=== PATIENT | female | born 1985 | race Caucasian/White ===

== ENCOUNTER 2020-05-05 14:53 | Outpatient (CLI) | payer MEDICAID ==
[2020-05-05 15:20] LABS: BASOPHILS # (AUTO) 0.1 10^3/uL (0.0-0.1); BASOPHILS % (AUTO) 0.5 %; EOSINOPHILS # (AUTO) 0.1 10^3/uL (0.0-0.7); EOSINOPHILS % (AUTO) 0.8 %; HGB - HEMOGLOBIN 12.8 g/dL (12.0-16.0); LYMPHOCYTES # (AUTO) 2.2 10^3/uL (1.5-3.5); LYMPHOCYTES % (AUTO) 24.1 %; MEAN CORPUSCULAR HEMOGLOBIN 32.7 pg (27.0-31.0); MEAN CORPUSCULAR HGB CONC 33.1 g/dL (32.0-36.0); MEAN CORPUSCULAR VOLUME 98.7 fL (81.0-99.0); MEAN PLATELET VOLUME 9.4 fL (7.9-10.8); MONOCYTES # (AUTO) 0.6 10^3/uL (0.0-1.0); MONOCYTES % (AUTO) 6.7 %; NEUTROPHILS # (AUTO) 6.3 10^3/uL (1.5-6.6); NEUTROPHILS % (AUTO) 67.7 %; PLT - PLATELET COUNT 258 10^3/uL (130-450); RED BLOOD COUNT 3.92 10^6/uL (4.20-5.40); RED CELL DISTRIBUTION WIDTH 13.1 % (12.0-15.0); WHITE BLOOD COUNT 9.3 x10^3/uL (4.8-10.8)
== END 2020-05-05 14:54 | disposition home or self-care (01) ==
LOC: LAB 14:53
PROVIDERS: ATTEND Obstetrics & Gynecology
DX: Z01.812 Encounter for preprocedural laboratory examination (principal); Z30.2 Encounter for sterilization; Z20.828 Contact with and (suspected) exposure to other viral communicable diseases
CPT/HCPCS: 36415; 85025

== ENCOUNTER 2020-05-10 06:34 | Day surgery (SDC) | payer MEDICAID ==
[~2020-05-10 06:34] MED LIST: CEFAZOLIN SODIUM IN 0.9 % NACL 2 GM/100 ML BAG IV ONE
[2020-05-10] MEDS ORDERED: KETOROLAC 30 MG/ML VIAL IVP ONE (06:35)
[2020-05-10] MEDS ORDERED: LIDOCAINE-MPF 2% 5 ML VIAL IM ONE (06:35)
[2020-05-10] MEDS ORDERED: DEXAMETHASONE 4 MG/ML VIAL IVP ONE (06:35)
[2020-05-10] MEDS ORDERED: PROPOFOL 200 MG/20 ML VIAL IVP ONE (06:35)
[2020-05-10] MEDS ORDERED: SUCCINYLCHOLINE 200 MG/10 ML VIAL IVP ONE (06:35)
[2020-05-10] MEDS ORDERED: MIDAZOLAM 2 MG/2 ML VIAL IVP ONE (06:35)
[2020-05-10] MEDS ORDERED: ONDANSETRON 4 MG/2 ML VIAL IVP ONE (06:35)
[2020-05-10] MEDS ORDERED: fentaNYL 100 MCG/2 ML VIAL IVP ONE (06:35)
[2020-05-10 06:52] LABS: HCG UR QUAL NEGATIVE
[2020-05-10] MEDS ORDERED: LACTATED RINGERS 1,000 ML IV ONE ×2 (07:00→08:51)
--- NOTE | 2020-05-10 07:21 | ANESTHESIA ---
Pre-Anesthesia VS, & Labs - Diagnosis desires sterilization - Procedure lap tubal ligation Vital Signs: Temp Pulse Resp BP Pulse Ox 36.2 C L 75 18 123/80 97 05/10/20 06:47 05/10/20 06:47 05/10/20 06:47 05/10/20 06:47 05/10/20 06:47 Height: 5 ft 5 in Weight (kg): 61.2 kg Body Mass Index: 22.4 BMI Classification: Healthy weight - NPO >8 hours - Is Patient ?: No - Lab Results Lab results reviewed: Yes Home Medications and Allergies Home Medications: Ambulatory Orders No Known Home Medications 05/05/20 No Known Home Medications 05/05/20 Allergies/Adverse Reactions: Allergies Allergy/AdvReac Type Severity Reaction Status Date / Time oxycodone [From Percocet] Allergy Rash Verified 05/05/20 15:14 Penicillins Allergy Rash Verified 05/05/20 15:14 Sulfa (Sulfonamide Allergy Anaphylaxis Verified 05/05/20 15:14 Antibiotics) sulfamethoxazole Allergy Anaphylaxis Verified 05/05/20 15:14 [From Bactrim] trimethoprim [From Bactrim] Allergy Anaphylaxis Verified 05/05/20 15:14 Anes History & Medical History - Anesthetic History Anesthesia Complications: reports: No previous complications Family history of Anesthesia Complications: Denies Family history of Malignant Hyperthermia: Denies - Medical History Cardiovascular: reports: None Pulmonary: reports: None Gastrointestinal: reports: None Urinary: reports: None Musculoskeletal: reports: None Endocrine/Autoimmune: reports: None Skin: reports: None Psychosocial: reports: Alcohol (social) - Surgical History General: Appendectomy, Other Eyes Ears Nose Throat (EENT): Myringotomy (tubes), Tonsil/Adenoidectomy Exam General: Alert, Oriented x3, Cooperative Dental: WNL Mouth Openin Fingerbreadth Neck Mobility: Normal Mallampati classification: I Thyromental Distance: greater than 6 cm Respiratory: Lungs clear, Normal breath sounds, No respiratory distress Cardiovascular: Regular rate Neurological: Normal speech Mental/Cognitive Status: Alert/Oriented X3, Normal for patient Cognitive Status: Within normal limits Plan Anesthesia Type: General Consent for Procedure(s) Verified and Reviewed: Yes Code Status: Attempt Resuscitation ASA classification: 1-Healthy patient Is this case an emergency?: No
[2020-05-10] MEDS ORDERED: BUPIVACAINE 0.25%-EPI 1:200000 PF 30 ML VIAL ONE (07:37)
[2020-05-10] MEDS ORDERED: BUPIVACAINE 0.25%-EPI 1:200000 PF 30 ML VIAL SUBQ ONE ×2 (08:04)
[2020-05-10] MEDS ORDERED: LORazepam 2 MG/ML VIAL IVP PRN (08:57)
[2020-05-10] MEDS ORDERED: ONDANSETRON 4 MG/2 ML VIAL IVP PRN ×2 (08:57→09:18)
[2020-05-10] MEDS ORDERED: HYDROmorphone 0.5 MG/0.5 ML SYRINGE IVP PRN ×2 (08:57→09:18)
[2020-05-10] MEDS ORDERED: HYDROcod/ACETAM 5/325 MG TABLET PO PRN (09:00)
--- NOTE | 2020-05-10 09:04 | OPERATIVE REPORT ---
Operative Report - General Procedure Date: 05/10/20 Planned Procedure: LAPROSCOPIC BILATERAL SALPINGECTEMY Procedure Performed: Laproscopic Bilateral Salpingectomy - Procedure Note Primary Surgeon: Lior Cortes MD Anesthesia Provider: Jessica aldana Anesthesia Technique: General ET tube Pathology: Bilateral Tubes Estimated Blood Loss (mL): 5
[2020-05-10] MEDS ORDERED: ATROPINE ABBOJECT 1 MG/10 ML SYRINGE IVP PRN (09:18)
[2020-05-10] MEDS ORDERED: NALOXONE 0.4 MG/ML VIAL IVP PRN (09:18)
[2020-05-10] MEDS ORDERED: fentaNYL 100 MCG/2 ML VIAL IVP PRN (09:18)
[2020-05-10] MEDS ORDERED: METOCLOPRAMIDE 10 MG/2 ML VIAL IVP PRN (09:18)
[2020-05-10] MEDS ORDERED: ePHEDrine 50 MG/ML VIAL IVP PRN (09:18)
[2020-05-10] MEDS ORDERED: MORPHINE 2 MG/ML CARPUJECT IVP PRN (09:18)
[2020-05-10] MEDS ORDERED: ONDANSETRON 4 MG/2 ML VIAL ONE (09:34)
[2020-05-10 09:51] VITALS: BP 111/78
[2020-05-10] MEDS ORDERED: LACTATED RINGERS 1,000 ML IV SCH (10:00)
--- NOTE | 2020-05-10 13:07 | OPERATIVE REPORT ---
DATE OF SERVICE: 05/10/2020 Physician: Lior Cortes MD PREOPERATIVE DIAGNOSIS: Undesired fertility. POSTOPERATIVE DIAGNOSIS: Undesired fertility. PROCEDURE PERFORMED: Laparoscopic bilateral salpingectomy. SURGEON: Lior Cortes MD ANESTHESIA PROVIDER: NETO Muhammad. ANESTHESIA: General via endotracheal tube. ESTIMATED BLOOD LOSS: Less than 5 mL. PROCEDURE: Following adequate general anesthesia with ET tube, patient was placed in dorsal lithotom y position. At this point, she was prepped and draped in the usual fashion. A timeout was performed , at which concerns were addressed. A speculum was placed in the vagina. The cervix was visualized, grasped with a single-tooth tenaculum. Uterus sounded to 7 cm. At this point, the cervix was dilat ed up to 8 mm and a HUMI catheter was placed in the uterus. The balloon was insufflated. At this po int, the screed operator's gloves were changed and following local anesthesia with 0.25% Marcaine with epine phrine, a bleb was made in the subumbilical region. A transverse incision was made utilizing a #11 b lade and a 5 mm trocar sheath and the scope was introduced without difficulty. The pelvis was inspec shey. There was no evidence of any injury at site of insertion. Two additional ports were placed, fredo th in the left and right lower quadrants. These were done following local anesthesia of 0.25% Marcai ne and skin incision with a #11 blade plate. At this point, the pelvis was inspected. The left fall opian tube was grasped at the fimbriated end and then a LigaSure was utilized to cauterize and transe ct. Care was taken to stay as close to the tube as possible to decrease the risk of injury to the ov addie vessels. This was carried all the way down to the cornu and then the tube was transected and r emoved. The contralateral tube was treated in identical fashion. Care was taken once again to avoid injury to the ovarian vessels. The tube was brought out through the trocar site. At this point, th e pelvis was inspected. There was no evidence of any bleeding. The trocars were removed under direc t visualization. The CO2 was allowed to escape. The incisions were closed utilizing 4-0 Monocryl shipman bcuticular. The instruments were then removed from the vagina. The patient tolerated the procedure well and was taken to recovery in stable condition. Sponge and needle counts were correct. TD: 05/10/2020 09:39
--- NOTE | 2020-05-10 17:34 | ANESTHESIA POST OP EVALUATION ---
Anesthesia Post Eval - Post Anesthesia Eval Vitals: Last Vital Signs Temp 36.4 C L 05/10/20 09:49 Pulse 71 05/10/20 09:49 Resp 12 05/10/20 09:49 BP 111/78 05/10/20 09:49 Pulse Ox 98 05/10/20 09:49 CV Function Including HR & BP: positive: Stable Pain Control: positive: Satisfactory Nausea & Vomiting: positive: Negative Mental Status: positive: Baseline Respiratory Status: Airway Patent Hydration Status: Satisfactory Anesthesia Complications: positive: None
== END 2020-05-10 06:35 | disposition home or self-care (01) ==
LOC: SDS 06:34
PROVIDERS: ATTEND Obstetrics & Gynecology
PROC: 0UT74ZZ Resection of Bilateral Fallopian Tubes, Percutaneous Endoscopic Approach (ICD-10-PCS; principal; 2020-05-10 07:30)
DX: Z30.2 Encounter for sterilization (principal)
CPT/HCPCS: 58661; 81025; J0330; J0690; J7120